=== PATIENT | female | born 1955 | race Caucasian/White ===

== ENCOUNTER 2016-12-22 10:28 | Inpatient (IN) ==
--- NOTE | 2016-12-22 11:33 | Emergency Department Note ---
Stephen Morel Hilary, am scribing for, and in the presence of, Danielito Sheppard MD 11:12. Silver Morel Phillip K, MD, personally performed the services described in this documentation, ascribed by Inge Mitchell in my presence, and it is both accurate and complete . Arrival - Arrival Chief Complaint: Chest Pain Stated Complaint: TRANSFER FROM [facility], CHEST PAIN ED Nursing Triage Note: TRANSFER FROM [facility] FOR EVALUATION OF CHEST PAIN. PT REPORTS SUDDEN ONSET OF SHARP LEFT SIDED CHEST PAIN THAT RADIATED TO HER SHOULDER BLADE AND LEFT ARM WITH SHORTNESS OF BREATH. PT STATES SHE HAD JUST STOOD UP FROM BED. PT STATES SHARP PAIN IS IMPROVED BUT DULL PAIN REMAINS CONSTANT. Mode of Arrival: Stretcher Limitations: No Limitations Source: Patient, RN Notes Reviewed - History of Present Illness HPI Narrative: Pt is a 61 y/o white female brought in the ED via EMS as a transfer from [facility] for Evaluation and c/o chest pain which onset this morning. Pt reports that she woke up this morning, stood up and had sharp pain in the back of her left shoulder blade and radiated around to the front of her chest and down her left arm. Pt confirms chest pain, SOB at the time of incident, dry cough, and small amount of ankle swelling but nausea, vomiting, diaphoresis, fever, or calf tenderness. She states that the sharp pain has improved but a dull pain remains. No other complaints or problems stated in the ED Onset (ago): hour(s) Consistency: constant Severity: mild Severity scale (1-10): 3 Allergies/Adverse Reactions: Allergies Allergy/AdvReac Type Severity Reaction Status Date / Time Sulfa (Sulfonamide Allergy Unknown/Unable Verified 12/22/16 10:47 Antibiotics) to obtain Home Medications: Home Medications Medication Instructions Recorded Confirmed Type Aspirin EC Tab 81 mg PO DAILY 12/22/16 12/22/16 History Estradiol Tab [Estrace Tab] 1 mg PO DAILY 12/22/16 12/22/16 History Review of System - Review of System 12 point system: reviewed and no additional remarkable complaints except as stated - Review of System Constitutional: Absent: diaphoresis, fever Respiratory: Present: cough (dry cough), respiratory distress (SOB at time of incident) Cardiovascular: Present: chest pain (Sharp radiating from left shoulder blade down her left arm and to the front chest) Gastrointestinal: Absent: nausea, vomiting Musculoskeletal: Present: joint swelling (slight ankle swelling). Absent: neck pain Medical,Surgical,& Family Hx - Medical History Cardio: History of: Hypertension Neurology: History of: Migraine - Social History Smoking Status: Never smoker Frequency of Alcohol Use: None Type of Drug Use: None Exam Vital Signs: Vital Signs Temperature 98.1 F 12/22/16 10:28 Pulse Rate 74 12/22/16 10:28 Respiratory Rate 16 12/22/16 10:30 Blood Pressure 161/126 12/22/16 10:28 O2 Sat by Pulse Oximetry 100 12/22/16 10:28 - General General appearance: alert, in no apparent distress - Head Head exam: Present: atraumatic, normocephalic - Eye Eye exam: Present: normal appearance, PERRL, EOMI - ENT ENT exam: Present: mucous membranes moist, TM's normal bilaterally. Absent: mucous membranes dry - Neck Neck exam: Present: full ROM, trachea midline. Absent: tenderness - Chest Chest inspection: Present: symmetric chest wall rise. Absent: tenderness - Respiratory Respiratory exam: Present: normal lung sounds bilaterally. Absent: respiratory distress - Cardiovascular Cardiovascular exam: Present: regular rate, normal rhythm, normal heart sounds. Absent: murmur, rubs, gallop - Abdominal Exam Abdominal exam: Present: soft, normal bowel sounds. Absent: distention, tenderness - Extremities Exam Extremities exam: Present: full ROM. Absent: tenderness, calf tenderness - Back Exam Back exam: Present: full ROM. Absent: tenderness - Neurological Exam Neurological exam: Present: alert, oriented X3, CN II-XII intact. Absent: motor sensory deficit - Psychiatric Psychiatric exam: Present: normal affect, normal mood - Skin Skin exam: Present: warm, dry, intact, normal color. Absent: rash Course Course Narrative: Patient discussed with Dr. Delgado who will evaluate in the ED. Results - Labs Lab Results: I have reviewed the patients labs (Labs from [facility] showed no abnormalities.) - EKG EKG results: interpreted by MELQUIADES WNL, sinus rhythm Disposition Clinical Impression: Chest pain, Possible unstable angina, Hypertension Case discussed with: patient Disposition: Still a Patient Condition: Guarded Additional Instructions: Admit to Dr. Delgado
[2016-12-22] MEDS ORDERED: ACETAMINOPHEN 325 MG TABLET PO PRN (11:51)
[2016-12-22] MEDS ORDERED: DOCUSATE SODIUM 100 MG CAPSULE PO PRN (11:51)
[2016-12-22] MEDS ORDERED: MAGNESIUM SULF RIDER 2 GM in PREMIX 1 EACH IV PRN (11:51)
[2016-12-22] MEDS ORDERED: ZALEPLON 5 MG CAPSULE PO PRN (11:51)
[2016-12-22] MEDS ORDERED: ONDANSETRON 4 MG/2 ML VIAL IV PRN (11:51)
[2016-12-22] MEDS ORDERED: MAGNESIUM SULF RIDER 4 GM in PREMIX 1 EACH IV PRN (11:51)
--- NOTE | 2016-12-22 11:57 | Cardiology History & Physical ---
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 DELGADO ([facility] Ms. Mei, 61WF, has no prior cardiac history. Risk factors include: dyslipidemia. Patient presented to the emergency department in transfer from [facility] after experiencing chest pain, left shoulder pain and arm pain this morning. Patient reports a sudden onset of left shoulder blade pain which radiated to her left shoulder and laterally across her left chest. She describes this as sharp and tight. Patient was at rest when this occurred. She became mildly short of breath with the discomfort and felt her heart beating "heavy". She rates the discomfort as a 7 on a scale of 1-10. She can identify no aggravating nor any alleviating factors. It was not associated with nausea, vomiting or diaphoresis. After approximately 30 minutes, the shoulder and back discomfort subsided however she continued to feel a dull pain in the left upper chest area. This is not reproducible to movement or palpation. She is currently chest pain-free. I have reviewed her labs from [facility]. Her first and only set of cardiac biomarkers have been negative. EKG reveals mild ST abnormality, possible early repolarization. All other labs are unremarkable. D-dimer was drawn at [place] but the result is not available. Chest x-ray reveals no significant abnormality. Patient's blood pressure was significantly elevated upon arrival to [place] ER at 168/116. She does not have a prior history of hypertension and tells me she does check her blood pressure routinely. She reports having mild dyslipidemia but does not take a statin drug and rather takes an aspirin daily. She is usually very active and usually can perform these activities without chest pain, heaviness or tightness. In retrospect, patient reports that over the past 6 months, she has noticed her heart pounding heavily with exertion and finding herself mildly short of breath with exertion. Patient has been given aspirin and Lovenox at the outlying facility. I will order a d-dimer stat, continue to cycle her cardiac biomarkers and EKG. Adjust medications for better blood pressure control. Fasting lipid profile in the morning. Echocardiogram has been ordered. Fasting lipid profile in the morning. Patient may require additional cardiac workup such as stress test versus cardiac catheterization. I will further discuss with Dr. Delgado and await additional recommendations. ASSESSMENT/PLAN: 1. CHEST PAIN -approach from several different ways. Will treat for musculoskeletal pain, GI condition, and angina. Will further discuss further workup with Dr. Delgado. If d-dimer is positive, will order CTA of chest 2. ELEVATED BLOOD PRESSURE - we will treat accordingly. Patient reports she does not usually have a history of hypertension that she has a family history of high blood pressure. 3. DYSLIPIDEMIA - fasting lipid profile in the morning. Home Medications Medication Instructions Recorded Confirmed Type Aspirin EC Tab 81 mg PO DAILY 12/22/16 12/22/16 History Estradiol Tab [Estrace Tab] 1 mg PO DAILY 12/22/16 12/22/16 History Loratadine [Claritin] 10 mg PO DAILY PRN 12/22/16 12/22/16 History Allergies Allergy/AdvReac Type Severity Reaction Status Date / Time Sulfa (Sulfonamide Allergy Unknown/Unable Verified 12/22/16 10:47 Antibiotics) to obtain Review of systems: REVIEW OF SYSTEMS: - Constitutional Constitutional:Absent: syncope, anorexia, night sweats - EENT Eyes: Absent: blurry vision, loss of vision, diplopia Ears: Absent: decreased hearing, ear pain, ear discharge - Cardiovascular Cardiovascular: Present: chest pain at rest. Mild dyspnea on exertion, palpitations, denies edema. No chest pain with inspiration. Denies claudication. - Respiratory Respiratory: Present: Mild dyspnea on exertion with long distances. Denies cough. Absent: wheezing, hemoptysis, change in phlegm color - Gastrointestinal Gastrointestinal: Denies: constipation. Absent: abdominal pain, hematemesis, hematochezia, melena, change in bowel habits, nausea - Genitourinary Genitourinary: Absent: difficulty urinating, dysuria, urinary hesitancy, flank pain - Musculoskeletal Musculoskeletal: Denies: back pain Absent: joint swelling, muscle cramps, muscle weakness - Neurological Neurological: Present: normal gait without frequent falls. Absent: dizziness, hemiparesis - Psychiatric Psychiatric: Absent: anxiety, depression, difficulty concentrating - Endocrine Endocrine: Denies: fatigue. Absent: cold intolerance, heat intolerance, polyuria, polyphagia, polydipsia - Hematologic/Lymphatic Hematologic/Lymphatic: Present: easy bruising. Absent: easy bleeding -Integumentary Integumentary: Absent: lesions, rashes, skin breakdown Medical,Surgical,& Family Hx - Medical History Cardio: No history of: Cardiac Dysrhythmia, CAD, Hypertension, MD, Valvular Heart Disease, Cardiovascular Problems Neurology: History of: Migraine - Social History Smoking Status: Never smoker Have you smoked in the last 12 months: No Frequency of Alcohol Use: None Type of Drug Use: None Functional capacity: independent ambulation Cardiology Physical Exam - Constitutional Vitals: Vital Signs Temp Pulse Resp BP Pulse Ox 98.1 F 74 16 161/126 100 12/22/16 10:28 12/22/16 10:28 12/22/16 10:30 12/22/16 10:28 12/22/16 10:28 Intake and Output 12/21/16 12/22/16 12/22/16 23:59 07:59 15:59 Other: Weight 66.678 kg Patient Weight 12/22/16 23:59 Weight 66.678 kg Exam: General: [Appears well with no apparent distress.] [Pleasant and cooperative. ] [Appears comfortable.] HEENT: [PERRL, normocephalic, atraumatic. Mucous membranes moist. No jaundice noted. Conjunctiva moist and clear, sclerae anicteric] Neck: No JVD/HJR, no thyromegaly or lymphadenopathy noted. No carotid bruit appreciated Cardiac: [Regular rate and rhythm.] [No murmur rub or gallop.] Lungs: [Clear to auscultation without accessory muscle use to assist the respiratory pattern.] Not requiring oxygen Abdomen: Soft, bowel sounds normoactive. Nontender and nondistended. No abdominal bruit or thrill noted. No masses noted. Musculoskeletal: No fluid collection. Decreased range of motion is noted. Extremities: No clubbing, cyanosis noted. [ No edema noted.] Upper extremity pulses 2+. Lower extremity pulses 2+. Capillary refill less than 3 seconds. Skin: No unusual lesions or rashes. No skin breakdown appreciated. Neuro: Awake, alert and oriented 3. Moves all extremities well without hemiparesis or paralysis. No essential tremor is appreciated. Result/EKG - Labs Lab Results: I have reviewed the past 24 hour labs - Diagnostic Findings Procedure: Chest x-ray: report reviewed by me - EKG EKG results: interpreted by me EKG shows: sinus rhythm
--- NOTE | 2016-12-22 12:03 | EKG Report ---
Stationary ECG Study [facility] ER Test Date: 12/22/2016 10:40:12 AM Pat Name: ANNE MARIE HASTINGS Department: Room: 283 Gender: F Commander Internal Affairs: YUVAL Nichols : 1955 Requested by: Danielito Shannon Order Number: [id number] Reading MD: RALPH VASQUEZ Intervals [place] Rate: 72 P: 71 NC: 154 QRS: 51 QRSD: 83 T: 76 QT: 385 QTc: 410 Interpretive Statements SINUS RHYTHM Electronically Signed On 12-22-16 15:01:43 CDT by RALPH VASQUEZ [email or web address]
[2016-12-22 12:10] LABS: Troponin I Only < 0.015 NG/ML (0.00-0.045)
[2016-12-22] MEDS ORDERED: LORATADINE 10 MG TABLET PO PRN (14:57)
[2016-12-22] MEDS ORDERED: KETOROLAC 15 MG/1 ML VIAL IV ONE (14:57)
--- NOTE | 2016-12-22 15:02 | EKG Report ---
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
[2016-12-22] MEDS: traMADol 50 MG TABLET PO SCH ×2 (15:45→20:51)
[2016-12-22] MEDS: GABAPENTIN 100 MG CAPSULE PO SCH ×2 (15:45→20:52)
[2016-12-22] MEDS: ACETAMINOPHEN 325 MG TABLET PO SCH ×2 (15:45→20:51)
[2016-12-22] MEDS: PANTOPRAZOLE 40 MG TABLET PO SCH (15:45)
[2016-12-22] MEDS: SODIUM CHLORIDE 0.45% 1,000 ML IV SCH ×3 (15:46→23:56)
[2016-12-22] MEDS: ATORVASTATIN 20 MG TABLET PO SCH (20:52)
[2016-12-22 22:31] LABS: Apearance,Urine CLEAR (Clear); Bilirubin,Urine Negative (Negative); Blood, Urine Negative (Negative); Glucose,Urine (UA) Negative (Negative); Ketones,Urine Negative (Negative); Nitrite,Urine Negative (Negative); Protein,Urine Negative; Renal Epithelial Cells,Urine Occasional /HPF (<1); Squamous Epithelial Cell,Urine Occasional /HPF (0-10); Urine Color Straw (Yellow); Urine Specific Gravity 1.005 (1.001-1.035); Urine Urobilinogen < 2.0 EU/DL (0.2-1.0); WBC,Urine 1 /HPF (0-6)
--- NOTE | 2016-12-22 22:34 | ECHO Report ---
Abigail Mei Exam Date: 12/22/2016 15:42 Referring Physician: Technologist: Aicha Maher [facility] Age: 61 Ht (in): 67 Wt (lb): 147 Gender: F Exam Location: [facility] [place] Echo Indications: Essential (primary) hypertension, Chest pain, unspecified BP: 161 / 126 HR: 74 Rhythm: Sinus Technical Quality: IMPRESSIONS Normal left ventricular cavity size. Normal left ventricular wall thickness. Left ventricular ejection fraction is estimated at 65 %. Normal diastolic function. Mild left atrial enlargement. Mild pulmonary hypertension MEASUREMENTS (Male / Female) Normal Values 2D ECHO LV Diastolic Diameter PLAX 4.0 cm 4.2 - 5.9 / 3.9 - 5.3 cm LV Systolic Diameter PLAX 2.0 cm LV Fractional Shortening PLAX 50.6 % IVS Diastolic Thickness 0.8 cm 0.6 - 1.0 / 0.6 - 0.9 cm LVPW Diastolic Thickness 0.8 cm 0.6 - 1.0 / 0.6 - 0.9 cm RV Internal Dim ED PLAX 2.3 cm Aortic Root Diameter 2.8 cm LA Systolic Diameter LX 3.1 cm 3.0 - 4.0 / 2.7 - 3.8 cm DOPPLER TR Peak Velocity 293.0 cm/s TR Peak Gradient 34.3 mmHg FINDINGS Left Ventricle Normal left ventricular cavity size. Normal left ventricular wall thickness. Left ventricular ejection fraction is estimated at 65 %. Normal diastolic function. Right Ventricle The right ventricle is normal in size and function. Right Atrium The right atrium is mildly enlarged. Left Atrium The left atrium is mildly enlarged. Mitral Valve Morphologically normal mitral valve. Trace mitral valve regurgitation. Aortic Valve Morphologically normal aortic valve without significant sclerosis or stenosis. There is no aortic regurgitation. Tricuspid Valve Morphologically normal tricuspid valve. Trace to mild tricuspid valve regurgitation. Tricuspid regurgitation velocities suggest a PAP of 44 mmHg. Pulmonic Valve Morphologically normal pulmonic valve without significant stenosis. There is no pulmonic regurgitation. Pericardium Normal pericardium without effusion. Aorta Normal ascending aorta dimension. Antonio Delgado (Electronically Signed) Final Date: 22 Dec 2016 22:34
[2016-12-23] MEDS: SODIUM CHLORIDE 0.45% 1,000 ML IV SCH ×2 (05:20→11:16)
[2016-12-23 06:13] LABS: Basophils % 0.3 % (0.0-0.8); Eosinophils # 0.1 10*3/uL (0.0-0.87); Eosinophils % 1.7 % (0.00-10.9); Hematocrit 36.9 VOL% (35.7-47.0); Hemoglobin 12.6 GM/DL (12.0-16.0); Immature Granulocytes % 0.2 %; Immature Granulocytes Absolute 0.01 #; Lymphocytes # 3.9 10*3/uL (1.4-4.0); Lymphocytes % 58.3 % (21.3-54.2); Mean Corpuscular HGB Conc 34.1 GM/DL (32-36); Mean Corpuscular Hemoglobin 30 PG (27-34); Mean Corpuscular Volume 88.1 FL (87-102); Mean Platelet Volume 10.6 FL (9.6-12.0); Monocytes # 0.6 10*3/uL (0.11-0.8); Monocytes % 8.6 % (1.7-12.7); Neutrophils # 2.1 10*3/uL (1.4-7.4); Neutrophils % 30.9 % (38.7-73.9); Platelet Count 190 T/CUMM (130-400); Red Blood Count 4.19 MC/CUMM (3.8-5.5); Red Cell Distribution Width 12.4 % (9.3-17.3); White Blood Count 6.6 T/CUMM (4-12)
[2016-12-23 06:41] LABS: Eosinophils 1 % (0-10); Lymphocytes 63 % (20-55); Segmented Neutrophils 32 % (50-85); Total Cells Counted 100
[2016-12-23 06:42] LABS: Hypochromasia Slight; Microcytosis Slight; Platelet Estimate Adequate
[2016-12-23 06:51] LABS: Bilirubin,Total 0.9 MG/DL (0.2-1.0); Calcium 8.1 MG/DL (8.5-10.1); Osmolality,Calculated 278.3 MOS/KG (273-304); Potassium 4.1 MMOL/L (3.5-5.1); Risk Ratio 2.6; Total Protein 5.7 G/DL (6.4-8.3)
[2016-12-23] MEDS: ASPIRIN EC 325 MG TABLET PO SCH (10:46)
[2016-12-23] MEDS: ESTRADIOL 1 MG TABLET PO SCH (10:46)
[2016-12-23] MEDS: ACETAMINOPHEN 325 MG TABLET PO SCH ×2 (10:46→22:52)
[2016-12-23] MEDS: GABAPENTIN 100 MG CAPSULE PO SCH ×3 (10:47→22:52)
[2016-12-23] MEDS: PANTOPRAZOLE 40 MG TABLET PO SCH (10:48)
[2016-12-23] MEDS: traMADol 50 MG TABLET PO SCH ×2 (10:48→22:53)
[2016-12-23] MEDS ORDERED: POTASSIUM CHLORIDE RIDER 10 MEQ in PREMIX 1 EACH IV PRN (12:20)
[2016-12-23] MEDS ORDERED: diphenhydrAMINE CAP 25 MG CAPSULE PO ONE (12:20)
[2016-12-23] MEDS ORDERED: DIAZEPAM 5 MG TABLET PO ONE (12:20)
[2016-12-23] MEDS ORDERED: MAGNESIUM SULF RIDER 2 GM in PREMIX 1 EACH IV PRN (12:20)
--- NOTE | 2016-12-23 12:28 | Cardiology Progress Note ---
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 Mei, 61WF, has no prior cardiac history. Risk factors include: dyslipidemia. Patient was admitted December 21, 2016 with left shoulder blade pain, left shoulder pain and left chest pain. Her cardiac biomarkers have remained negative. EKG is unremarkable as is her echocardiogram. She is scheduled for stress test. DECEMBER 23, 2016: Patient continued to have intermittent chest discomfort eventually relieved during the night. This morning, she underwent stress testing and has received abnormal results. Vital signs are stable. Her cardiac biomarkers remain negative. Dr. Delgado discussed the results of stress test with patient. She is agreeable to undergo cardiac catheterization this afternoon by Dr. Chiquis Ayala. I will keep her n.p.o. at this point. ASSESSMENT/PLAN: 1. CHEST PAIN -cardiac biomarkers are negative. Abnormal stress test. N.p.o. for cardiac catheterization today. 2. ELEVATED BLOOD PRESSURE - resolved with introduction of antihypertensives. Will adjust accordingly during hospital stay. 3. DYSLIPIDEMIA - LDL 109. 4. ABNORMAL CARDIOLYTE STRESS TEST - NPO for [facility] this morning. Exam (Progress Note) - Constitutional Vitals: Period Temp Pulse Resp BP Sys/[place]bour Pulse Ox Last 24 Hr 96.9 F-98.7 F 63-87 16-20 98-135/51-84 90-100 Exam: Exam: General: [Appears well with no apparent distress.] [Pleasant and cooperative. ] [Appears comfortable.] HEENT: [PERRL, normocephalic, atraumatic. Mucous membranes moist. No jaundice noted. Conjunctiva moist and clear, sclerae anicteric] Neck: No JVD/HJR, no thyromegaly or lymphadenopathy noted. No carotid bruit appreciated Cardiac: [Regular rate and rhythm.] [No murmur rub or gallop.] Lungs: [Clear to auscultation without accessory muscle use to assist the respiratory pattern.] Not requiring oxygen Abdomen: Soft, bowel sounds normoactive. Nontender and nondistended. No abdominal bruit or thrill noted. No masses noted. Musculoskeletal: No fluid collection. Decreased range of motion is noted. Extremities: No clubbing, cyanosis noted. [ No edema noted.] Upper extremity pulses 2+. Lower extremity pulses 2+. Capillary refill less than 3 seconds. Skin: No unusual lesions or rashes. No skin breakdown appreciated. Neuro: Awake, alert and oriented 3. Moves all extremities well without hemiparesis or paralysis. No essential tremor is appreciated. Result/EKG - Labs CBC & BMP: 12/23/16 04:37 12/23/16 04:37 Lab Results: I have reviewed the past 24 hour labs Labs: Laboratory Results - last 24 hr 12/22/16 12/22/16 12/23/16 21:20 Unknown 04:37 WBC 6.6 RBC 4.19 Hgb 12.6 Hct 36.9 MCV 88.1 MCH 30 MCHC 34.1 RDW 12.4 Plt Count 190 MPV 10.6 Neut % (Auto) 30.9 L Lymph % (Auto) 58.3 H [place] % (Auto) 8.6 Eos % (Auto) 1.7 Baso % (Auto) 0.3 Neut # (Auto) 2.1 Lymph # (Auto) 3.9 [place] # (Auto) 0.6 Eos # (Auto) 0.1 Baso # (Auto) 0.0 Total Counted 100 Immature Gran % 0.2 Nucleated RBC % 0.0 Immature Gran # 0.01 Segmented Neutrophils 32 L Lymphocytes 63 H Monocytes 4 Eosinophils 1 Nucleated RBCs # 0.00 Platelet Estimate Adequate Hypochromasia Slight Microcytosis Slight Sodium Potassium Chloride Carbon Dioxide Anion Gap BUN Creatinine GFR Calculation BUN/Creatinine Ratio Glucose POC Glucose Calculated Osmolality Calcium Total Bilirubin AST ALT Alkaline Phosphatase Total Protein Albumin Globulin Albumin/Globulin Ratio Triglycerides Cholesterol LDL Cholesterol VLDL Cholesterol HDL Cholesterol Heart Disease Risk Ratio TSH 3rd Generation 1.340 Urine Color Straw Urine Appearance Clear Urine pH 8.0 Ur Specific [place] 1.005 Urine Protein Negative Urine Glucose (UA) Negative Urine Ketones Negative Urine Blood Negative Urine Nitrate Negative Urine Bilirubin Negative Urine Urobilinogen < 2.0 H Urine Leukocytes Negative Urine WBC 1 Ur Squamous Epith Cells Occasional Ur Renal Epithelial Cell Occasional Ur Culture Indicated? Not indicated 12/23/16 12/23/16 04:37 10:40 WBC RBC Hgb Hct MCV MCH MCHC RDW Plt Count MPV Neut % (Auto) Lymph % (Auto) [place] % (Auto) Eos % (Auto) Baso % (Auto) Neut # (Auto) Lymph # (Auto) [place] # (Auto) Eos # (Auto) Baso # (Auto) Total Counted Immature Gran % Nucleated RBC % Immature Gran # Segmented Neutrophils Lymphocytes Monocytes Eosinophils Nucleated RBCs # Platelet Estimate Hypochromasia Microcytosis Sodium 141 Potassium 4.1 Chloride 106 Carbon Dioxide 25 Anion Gap 14.1 BUN 10 Creatinine 0.80 GFR Calculation 81 BUN/Creatinine Ratio 12.00 Glucose 72 L POC Glucose 125 H Calculated Osmolality 278.3 Calcium 8.1 L Total Bilirubin 0.90 AST 10 ALT 15 Alkaline Phosphatase 55 Total Protein 5.7 L Albumin 3.0 L Globulin 2.7 Albumin/Globulin Ratio 1.1 Triglycerides 75 Cholesterol 203 H LDL Cholesterol 109.0 VLDL Cholesterol 15.0 HDL Cholesterol 78 H Heart Disease Risk Ratio 2.60 TSH 3rd Generation Urine Color Urine Appearance Urine pH Ur Specific [place] Urine Protein Urine Glucose (UA) Urine Ketones Urine Blood Urine Nitrate Urine Bilirubin Urine Urobilinogen Urine Leukocytes Urine WBC Ur Squamous Epith Cells Ur Renal Epithelial Cell Ur Culture Indicated? - Diagnostic Findings Procedure: Chest x-ray: report reviewed by me - EKG EKG results: interpreted by me EKG shows: sinus rhythm
[2016-12-23] MEDS ORDERED: HEPARIN/NACL 0.9% 2 UNITS/ML 1,000 ML IV ONE (17:32)
[2016-12-23] MEDS ORDERED: LIDOCAINE 1% 20 ML VIAL ONE (17:32)
[2016-12-23] MEDS ORDERED: SODIUM BICARBONATE 2.4 MEQ/5 ML VIAL ONE (17:32)
[2016-12-23] MEDS ORDERED: MIDAZOLAM 2 MG/2 ML VIAL ONE ×2 (18:09→18:30)
[2016-12-23] MEDS ORDERED: fentaNYL 100 MCG/2 ML VIAL ONE (18:10)
--- NOTE | 2016-12-23 18:21 | History and Physical Update ---
Sedation H&P Update - Dictation Physical: refer to H&P completed by admitting physician - Physical Exam Mental Status: alert and oriented Heart: regular rate and rhythm Lung: clear to auscultation Abdomen: within normal limits Vitals: within normal limits - Sedation Plan for Sedation: moderate Patient Consent: Procedure disscussed with patient and patinet has consented., Risks and benefits were discussed with patient,including infection,, bleeding, injury to surrounding structures, seizure, temporary nerve, Patient understands and accepts potential risks/benefits and agrees to, proceed. ASA Class: III Airway Assessment: Class I: Soft palate, uvula, fauces, pillars visible
[2016-12-23] MEDS ORDERED: NITROGLYCERIN SL 0.4 MG TABLET SL PRN (19:15)
[2016-12-23] MEDS ORDERED: MORPHINE 2 MG/1 ML SYRINGE IV PRN (19:15)
--- NOTE | 2016-12-23 21:50 | Cardiology Operative Report ---
Date of Procedure:: 12/23/16 Pre-op diagnosis: Abnormal stress test, chest pain Post-op diagnosis: other (Angiographically normal coronary arteries) Procedure: 1. Selective left and right coronary angiography. 2. Left heart catheterization with left ventriculogram. 3. Right iliac angiography to rule out vascular complications. 4. Application of minx hemostasis device to the right femoral arteriotomy site. Impression: 1. Angiographically normal coronary arteries. 2. Right dominant coronary arteries. 3. Ejection fraction 60 %. 4. Angiographically normal right iliac artery without evidence of vascular complications. Plan: 1. Noncardiac workup if symptoms. 2. Risk factor modification. Equipment: Diagnostic 6 Jamaican JL4, JR4, pigtail catheters. Hemodynamics: Aortic pressure 149/82 mmHg, left ventricular pressure 136/8 mmHg, LVEDP 18 mmHg Sedation: Versed 4 mg, fentanyl 100 mcg Procedure: After informed consent was obtained the patient was prepped and draped in sterile fashion. The right groin was infiltrated with 1% lidocaine and the right femoral artery was accessed via modified Seldinger technique using a micropuncture needle and a 6 Jamaican femoral arterial sheath was placed. All catheter exchanges were performed over a guidewire under fluoroscopic guidance. Diagnostic 6 [place]ican JL4 and JR4 catheters were advanced to the left and right coronary arteries respectively and multiple cineangiograms were performed in varying degrees of obliquity and angulation. Thereafter a pigtail catheter was advanced into the left ventricle where hemodynamics were obtained followed by left ventriculogram. At conclusion of the procedure right iliac angiography was performed to rule out vascular complications. Make hemostasis device was unsuccessfully applied to the right femoral arteriotomy site Findings: 1. The left main artery is angiographically normal. 2. The left anterior descending artery extends to the apex and wraps around. It is angiographically normal. 3. There is not an intermediate ramus branch. 4. The circumflex artery is a nondominant vessel. It gives rise to 3 moderate size circumflex arteries which are angiographically normal, as is the circumflex proper. 5. The right coronary artery is a dominant vessel that is angiographically normal. 6. Ejection fraction is 60 % with normal anterior, inferior and apical wall motion. 7. No significant mitral regurgitation. 8. No significant aortic stenosis. 9. The right iliac artery is angiographically normal without evidence of vascular complications. Contrast use: Omnipaque 62 cc Fluoro time: 1.4 minutes Complications: none Specimens removed: none Devices implanted: Mynx Anesthesia: moderate conscious sedation Surgeon / Physician: Chiquis Ayala Implementation Lead: none (Dom Jimenes) Estimated blood loss: minimal Specimens: none sent Condition: stable Disposition: floor
[2016-12-23] MEDS: ATORVASTATIN 20 MG TABLET PO SCH (22:53)
[2016-12-24] MEDS: SODIUM CHLORIDE 0.45% 1,000 ML IV SCH (00:36)
[2016-12-24 06:47] LABS: Basophils % 0.3 % (0.0-0.8); Eosinophils # 0.1 10*3/uL (0.0-0.87); Eosinophils % 0.8 % (0.00-10.9); Hematocrit 35.2 VOL% (35.7-47.0); Immature Granulocytes % 0.5 %; Immature Granulocytes Absolute 0.04 #; Lymphocytes # 2.4 10*3/uL (1.4-4.0); Lymphocytes % 31.5 % (21.3-54.2); Mean Corpuscular HGB Conc 34.1 GM/DL (32-36); Mean Corpuscular Hemoglobin 30 PG (27-34); Mean Corpuscular Volume 87.1 FL (87-102); Mean Platelet Volume 10.8 FL (9.6-12.0); Monocytes # 0.4 10*3/uL (0.11-0.8); Monocytes % 5.8 % (1.7-12.7); Neutrophils # 4.6 10*3/uL (1.4-7.4); Neutrophils % 61.1 % (38.7-73.9); Platelet Count 201 T/CUMM (130-400); Red Blood Count 4.04 MC/CUMM (3.8-5.5); Red Cell Distribution Width 12.2 % (9.3-17.3); White Blood Count 7.5 T/CUMM (4-12)
[2016-12-24 08:27] LABS: Calcium 7.7 MG/DL (8.5-10.1); Magnesium 2.2 MG/DL (1.8-2.4); Osmolality,Calculated 277.4 MOS/KG (273-304); Potassium 4.2 MMOL/L (3.5-5.1)
[2016-12-24] MEDS: traMADol 50 MG TABLET PO SCH (08:38)
[2016-12-24] MEDS: GABAPENTIN 100 MG CAPSULE PO SCH (08:38)
[2016-12-24] MEDS: ESTRADIOL 1 MG TABLET PO SCH (08:38)
[2016-12-24] MEDS: ACETAMINOPHEN 325 MG TABLET PO SCH (08:38)
[2016-12-24] MEDS: PANTOPRAZOLE 40 MG TABLET PO SCH (08:38)
[2016-12-24] MEDS: ASPIRIN EC 325 MG TABLET PO SCH (08:39)
[2016-12-24 11:33] VITALS: BP 102/56
--- NOTE | 2016-12-24 12:24 | Discharge Summary ---
Hospital Course - Hospital Course Hospital Course: Patient presented to the emergency department at [facility] December 22, 2016 with complaints of left shoulder, back and chest discomfort. Cardiac biomarkers were negative, EKG unremarkable. Chest x-ray revealed no acute abnormality. D-dimer negative. Echo revealed no significant abnormality. Patient underwent stress test which revealed abnormal findings. Therefore, she underwent cardiac catheterization, performed by Dr. Chiquis Ayala, December 23, 2016 with a phone impression noted: Findings: 1. The left main artery is angiographically normal. 2. The left anterior descending artery extends to the apex and wraps around. It is angiographically normal. 3. There is not an intermediate ramus branch. 4. The circumflex artery is a nondominant vessel. It gives rise to 3 moderate size circumflex arteries which are angiographically normal, as is the circumflex proper. 5. The right coronary artery is a dominant vessel that is angiographically normal. 6. Ejection fraction is 60 % with normal anterior, inferior and apical wall motion. 7. No significant mitral regurgitation. 8. No significant aortic stenosis. 9. The right iliac artery is angiographically normal without evidence of vascular complications. Tolerated the procedure well without claudication and was returned to our telemetry unit in stable condition. Overnight, labs are stable, no chest pain this morning. Right groin soft, free of hematoma or bruit. Patient and daughter were counseled regarding non-cardiac chest pain. She will be discharged on a PI, medications to treat musculoskeletal pain 1 week. She will be given a follow-up appointment [address] Ayala. Patient will not require beta-blockade as her blood pressure will not allow for such. - Time spent with patient Time with patient DS: Greater than 30 minutes Diagnosis - Discharge Diagnosis (1) Elevated blood pressure reading Status: Chronic (2) Dyslipidemia Status: Chronic (3) Chest pain Status: Acute Specialty Discharge - Follow Up or Referrals Follow up with: Chiquis Ayala MD [Physician] - 02/03/17 7:50 am Discharge Plan - Discharge Data Disposition: Disch To Home/Self Care Condition at Discharge: Stable Discharge Diet: advance to your usual diet Activity: other (Post cath expectations) Hygiene: other Weight Bearing at Discharge: other (Post cath expectations) Driving: other (Post cath expectations) Contact your physician if you experience:: fever over 101, Difficulty voiding, Redness or swelling, Nausea/Vomiting, Shortness of breath, Bleeding, pain uncontrolled by pain medications - Discharge Medications New Acetaminophen Tab [Tylenol Tab] 325 mg PO BID #14 tablet Atorvastatin [Lipitor] 20 mg PO BEDTIME #30 tablet Gabapentin Cap/Tab [Neurontin Cap/Tab] 100 mg PO TID #21 capsule Pantoprazole Tab [Protonix Tab] 40 mg PO DAILY #30 tablet traMADol TAB [Ultram] 50 mg PO BID #14 tablet Continue Aspirin EC Tab 81 mg PO DAILY Estradiol Tab [Estrace Tab] 1 mg PO DAILY Loratadine [Claritin] 10 mg PO DAILY PRN PRN Reason: Allergy Symptoms - Follow Up or Referral Follow Up: Chiquis Ayala MD [Physician] - 02/03/17 7:50 am - Forms/Instructions Instructions: Chest Pain (DC), Left Heart Catheterization (DC) Exam - Constitutional Vitals: Period Temp Pulse Resp BP Sys/Barbour Pulse Ox Last 24 Hr 96.4 F-99.2 F 58-95 16-20 101-139/53-76 94-100 Exam: Exam: General: [Appears well with no apparent distress.] [Pleasant and cooperative. ] [Appears comfortable.] HEENT: [PERRL, normocephalic, atraumatic. Mucous membranes moist. No jaundice noted. Conjunctiva moist and clear, sclerae anicteric] Neck: No JVD/HJR, no thyromegaly or lymphadenopathy noted. No carotid bruit appreciated Cardiac: [Regular rate and rhythm.] [No murmur rub or gallop.] Lungs: [Clear to auscultation without accessory muscle use to assist the respiratory pattern.] Not requiring oxygen Abdomen: Soft, bowel sounds normoactive. Nontender and nondistended. No abdominal bruit or thrill noted. No masses noted. Musculoskeletal: No fluid collection. Decreased range of motion is noted. Extremities: Right groin free of hematoma or bruit. No clubbing, cyanosis noted. [ No edema noted.] Upper extremity pulses 2+. Lower extremity pulses 2+ . Capillary refill less than 3 seconds. Skin: No unusual lesions or rashes. No skin breakdown appreciated. Neuro: Awake, alert and oriented 3. Moves all extremities well without hemiparesis or paralysis. No essential tremor is appreciated. Discharge Results Labs on day of discharge: Labs from last 24 hours 12/24/16 12/24/16 06:59 04:00 WBC 7.5 RBC 4.04 Hgb 12.0 Hct 35.2 L MCV 87.1 MCH 30 MCHC 34.1 RDW 12.2 Plt Count 201 MPV 10.8 Neut % (Auto) 61.1 Lymph % (Auto) 31.5 [place] % (Auto) 5.8 Eos % (Auto) 0.8 Baso % (Auto) 0.3 Neut # (Auto) 4.6 Lymph # (Auto) 2.4 [place] # (Auto) 0.4 Eos # (Auto) 0.1 Baso # (Auto) 0.0 Immature Gran % 0.5 Nucleated RBC % 0.0 Immature Gran # 0.04 Nucleated RBCs # 0.00 Sodium 140 Potassium 4.2 Chloride 107 Carbon Dioxide 26 Anion Gap 11.2 BUN 9 Creatinine 0.80 GFR Calculation 81 BUN/Creatinine Ratio 11.00 Glucose 90 Calculated Osmolality 277.4 Calcium 7.7 L Magnesium 2.2 - Imaging and Cardiology Cardiology Procedure: report reviewed by me Procedure: Chest x-ray: report reviewed by me, Ultrasound: report reviewed by (echo) DS: Provider Date of admission: 12/22/16 11:51 Primary care physician: . No PCP Attending physician on admission: Antonio Delgado MD Discharging clinician: Jasmina Cm NP Expected date of discharge: 12/24/16
--- NOTE | 2016-12-24 14:03 | Nuclear Medicine Report ---
EXERCISE STRESS TEST Interpreted and dictated by Dr. Antonio Delgado. INDICATION: Chest pain. PROCEDURE: At rest, 10 mCi of 99-Technetium labeled Sestamibi was injected and rest images were obta ined. The patient then exercise according to the [place]varado treadmill stress protocol. At peak stress, 3 0 mCi of 99-Technetium labeled Sestamibi was injected and post-stress images were obtained. FINDINGS: At rest, sinus rhythm 74 beats per minute, blood pressure 122/76. The patient exercise fo r 7 minutes 17 seconds according to the [place]ado treadmill stress protocol, achieving a peak heart rate of 139 beats per minute, 87% of the maximum age-appropriate predicted heart rate. She achieved 7.3 M ETS. At peak stress, sinus tachycardia, compared to the baseline, which had no significant ST-T moyer ges, at peak stress, there is [address] depression in II, III, aVF, V and , resolving with rest. The patient had nonlimiting chest pain at peak stress. Rest and post stress gated and perfus ion images were reviewed. The end-diastolic volume is 58 cc, the end-systolic volume is 15 cc, the c alculated left ventricular ejection fraction is 73%. There is no transient dilatation. Perfusion im ages showed a small area in the anteroseptal/apical region of mildly decreased activity at rest, with minimal and more prominent decrease post stress. This is suggestive of old myocardial disease with probable superimposed ischemia. CONCLUSIONS: CLINICALLY AND ELECTRICALLY POSITIVE EXERCISE STRESS TEST. HENDRICKS TREADMILL STRESS SCORE -1. NORMAL SYSTOLIC FUNCTION, SUGGESTION OF SMALL AREA OF MILD ISCHEMIA AND ANTEROSEPTAL/APICAL REG ION. THIS IS A MODERATE RISK TEST. Procedure performed and interpreted at [facility] Department of Radiology.
== END 2016-12-24 15:26 | disposition home or self-care (01) | DRG 287 ==
LOC: EDBD → EDUNIT# → N.ED 10:28 → N.EDINP 10:28 → OBSVTOIN 11:51 → N.TELEN 12:50
PROVIDERS: ADMIT Internal Medicine Clinical Cardiac Electrophysiology; ATTEND Internal Medicine Clinical Cardiac Electrophysiology
PROC: CLCCHCL (ICD-10-PCS; 2016-12-23 18:15)